=== PATIENT | male | born 2000 | race American Indian/Alaskan Native ===

== ENCOUNTER 2020-03-09 18:17 | Emergency (ER) | payer MEDICAID ==
--- NOTE | 2020-03-09 20:39 | Emergency Department Report ---
ED Psych HPI - General Chief Complaint: Psych Stated Complaint: SUICIDAL THOUGHTS Time Seen by Provider: 03/09/20 20:17 Source: EMS Mode of arrival: Ambulatory - History of Present Illness Initial Comments: Patient is 19 years old male with history of schizophrenia. Patient brought to the emergency room via EMS from home for evaluation of suicidal ideation and attempt. Patient found to have a multiple superficial laceration to the left arm. Patient stated that he is hearing voices asking him to hurt himself. Patient denied any homicidal ideation. No visual hallucination. MD Complaint: suicidal ideation Associated Psychiatric Symptoms: suicidal ideation, racing thoughts, auditory hallucinations History of same: Yes Quality: constant Associated Symptoms: denies other symptoms If Self Harm: admits thoughts of, has plan, self-inflicted trauma - Related Data Home Medications Medication Instructions Recorded Confirmed Last Taken QUEtiapine [SEROquel] 1 tab PO BID 03/09/20 03/09/20 02/08/20 Allergies Allergy/AdvReac Type Severity Reaction Status Date / Time No Known Allergies Allergy Verified 03/09/20 21:11 ED Review of Systems ROS: Stated complaint: SUICIDAL THOUGHTS Other details as noted in HPI Comment: All other systems reviewed and negative Constitutional: denies: chills, fever Respiratory: denies: cough, orthopnea, shortness of breath, SOB with exertion, SOB at rest, wheezing Cardiovascular: denies: chest pain, palpitations Gastrointestinal: denies: abdominal pain, nausea, vomiting Musculoskeletal: denies: back pain Neurological: denies: headache, weakness, numbness, paresthesias, confusion, abnormal gait Psychiatric: depression, auditory hallucinations, suicidal thoughts. denies: visual hallucinations, homicidal thoughts ED Past Medical Hx - Social History Smoking Status: Current Every Day Smoker Substance Use Type: Alcohol, Marijuana - Medications Home Medications: Home Medications Medication Instructions Recorded Confirmed Last Taken Type QUEtiapine [SEROquel] 1 tab PO BID 03/09/20 03/09/20 02/08/20 History ED Physical Exam - General Limitations: No Limitations General appearance: alert, in no apparent distress - Head Head exam: Present: atraumatic, normocephalic, normal inspection - Eye Eye exam: Present: normal appearance, PERRL - ENT ENT exam: Present: normal exam, normal orophraynx, mucous membranes moist - Neck Neck exam: Present: normal inspection, full ROM. Absent: tenderness, meningismus - Respiratory Respiratory exam: Present: normal lung sounds bilaterally - Cardiovascular Cardiovascular Exam: Present: regular rate, normal rhythm, normal heart sounds - GI/Abdominal GI/Abdominal exam: Present: soft, normal bowel sounds. Absent: distended, tenderness, guarding, rebound, rigid, organomegaly, mass, bruit, pulsatile mass, hernia - Back Exam Back exam: Present: normal inspection, full ROM. Absent: CVA tenderness (R), CVA tenderness (L) - Neurological Exam Neurological exam: Present: alert, oriented X3, CN II-XII intact, normal gait, reflexes normal. Absent: motor sensory deficit - Psychiatric Psychiatric exam: Present: depressed, suicidal ideation. Absent: agitated, anxious, flat affect, manic, homicidal ideation - Skin Skin exam: Present: warm, normal color, abrasion (Multiple abrasions to the left forearm.) ED Course Vital Signs 03/09/20 03/10/20 03/10/20 19:45 01:45 07:57 Temperature 98.0 F 97.9 F 97.6 F Pulse Rate 74 78 74 Respiratory 20 20 20 Rate Blood Pressure 111/56 117/62 112/74 [Left] O2 Sat by Pulse 100 98 100 Oximetry ED Medical Decision Making - Lab Data Result diagrams: 03/09/20 20:31 03/09/20 20:31 Critical care attestation.: If time is entered above; I have spent that time in minutes in the direct care of this critically ill patient, excluding procedure time. ED Disposition Clinical Impression: Suicidal ideation Disposition: [id number]/[facility]-[id number] PSY HOSP/PSY UNIT Is pt being admited?: No Condition: Stable Referrals: PRIMARY CARE, [Primary Care Provider] - 3-5 Days
[2020-03-09] MEDS ORDERED: IBUPROFEN 600 MG TAB PO ONE (20:40)
[2020-03-09 20:56] LABS: Bilirubin,Urine NEG (Negative); Blood,Urine NEG (Negative); Color,Urine Yellow (Yellow); Mucus,Urine 3+ /HPF; Urobilinogen,Urine < 2.0 mg/dL (<2.0); WBC,Urine < 1.0 /HPF (0.0-6.0)
[2020-03-09 21:05] LABS: Basophils % (Auto) 0.5 % (0.0-1.8); Eosinophils % (Auto) 0.3 % (0.0-4.3); Hematocrit 42.9 % (35.5-45.6); Lymphocytes # (Auto) 1.7 K/mm3 (1.2-5.4); Mean Corpuscular HGB Conc 33 % (32-34); Mean Corpuscular Volume 81 fl (84-94); Monocytes # (Auto) 0.7 K/mm3 (0.0-0.8); Platelet Count 254 K/mm3 (140-440); Red Blood Count 5.33 M/mm3 (3.65-5.03); Red Cell Distribution Width 14.9 % (13.2-15.2)
[2020-03-09 21:06] LABS: Amphetamine Screen,Urine Negative; Benzodiazepines Screen,Urine Negative; Cannabinoid Screen,Urine Negative; Cocaine Screen,Urine Negative; Methadone Screen,Urine Negative; Opiate Screen,Urine Negative
[2020-03-09 21:20] LABS: Blood Urea Nitrogen 14 mg/dL (9-20); Calcium 9.8 mg/dL (8.4-10.2); Hemolysis Index 22
[2020-03-09 21:22] LABS: BUN/Creatinine Ratio 20
[2020-03-09] MEDS ORDERED: QUEtiapine 100 MG TAB PO SCH (22:00)
[2020-03-10 07:58] VITALS: BP 112/74
--- NOTE | 2020-03-10 10:14 | Consultation ---
History of Present Illness - Reason for Consult Consult date: 03/10/20 Reason for consult: Si, hallucinations - History of Present Psychiatric Illness Memo Martines is a 19y/o male patient who presented to the ER after cutting his wrist. It is documented that the patient had multiple superficial lacerations to his arm after voices told him to hurt himself. During my interview with the patient, he is a/o x 3. He is calm and cooperative. His affect is flat. His disposition is quiet. The patient verbalizes feeling "depressed," and states that "voices were telling me to kill myself." The patient verbalizes the voices at present and states they are telling him n egative things. When asked about any illicit drug use, the patient replied "I eat meth." He also says he uses "weed." He says he has a history of schizophrenia and he takes seroquel 200mg po BID PAST PSYCHIATRIC HISTORY Diagnoses: schizophrenia Suicide attempts or Self-harm behavior: Yes Prior psychiatric hospitalizations: Yes Substance Abuse history: "eat meth" Previous psychiatric medications tried: seroquel Outpatient treatment: yes PAST MEDICAL HISTORY: None reported Family Psychiatric History: None reported or documented SOCIAL HISTORY Marital Status: Single Living Arrangements: homeless Employment Status: unemployed Access to guns/weapons: None reported Education: high school History of Abuse: None reported Legal History: denies REVIEW OF SYSTEMS Constitutional: Negative for weight loss ENT: Negative for stridor Respiratory: Negative for cough or hemoptysis All other systems reviewed and are negative MENTAL STATUS EXAMINATION General Appearance and Behavior: Age appropriate, good hygiene, wearing appropriate clothes, good eye contact Cooperation: Participating/engaged Psychomotor Behavior: Psychomotor normal Mood: depressed Affect and affective range: Congruent with mood Thought Process: illogical Thought Content: hallucinations Speech: Normal rate, volume and rhythm Suicidal Ideation: Yes Homicidal Ideation: Denies HI Hallucinations: Auditory Delusions: None elicited Impulse Control: Impaired Insight and Judgment: Limited insight and judgment Memory: Normal Attention: Limited Orientation: Alert, oriented Assessment and Plan Schizophrenia TREATMENT Start Seroquel 200mg po BID Start Depakote DR 125mg po BID Sitter: Defer to primary Medical: Per primary Disposition: Recommend acute inpatient psychiatric treatment Will follow. Thank you for this consult. Medications and Allergies Allergies Allergy/AdvReac Type Severity Reaction Status Date / Time No Known Allergies Allergy Verified 03/09/20 21:11 Home Medications Medication Instructions Recorded Confirmed Last Taken Type QUEtiapine [SEROquel] 1 tab PO BID 03/09/20 03/09/20 02/08/20 History Active Meds: Active Medications Quetiapine Fumarate (Seroquel) 200 mg PO QHS [facility] Last Admin: 03/09/20 21:49 Dose: 200 mg Documented by: Mental Status Exam - Vital signs Last Vital Signs Temp 97.6 F 03/10/20 07:57 Pulse 74 03/10/20 07:57 Resp 20 03/10/20 07:57 BP 112/74 03/10/20 07:57 Pulse Ox 100 03/10/20 07:57 Results Result Diagrams: 03/09/20 20:31 03/09/20 20:31 Abnormal lab results 03/09/20 03/09/20 03/09/20 Range/Units 20:31 20:31 20:31 RBC 5.33 H (3.65-5.03) M/mm3 MCV 81 L (84-94) fl MCH 26 L (28-32) pg Gosper % (Auto) 9.0 H (0.0-7.3) % Creatinine 0.7 L (0.8-1.3) mg/dL Glucose 105 H (75-100) mg/dL Salicylates < 0.3 L (2.8-20.0) mg/dL Acetaminophen (10.0-30.0) ug/mL 03/09/20 Range/Units 20:31 RBC (3.65-5.03) M/mm3 MCV (84-94) fl MCH (28-32) pg Gosper % (Auto) (0.0-7.3) % Creatinine (0.8-1.3) mg/dL Glucose (75-100) mg/dL Salicylates (2.8-20.0) mg/dL Acetaminophen 5.0 L (10.0-30.0) ug/mL All other labs normal.
[2020-03-10] MEDS ORDERED: DIVALPROEX DR 125 MG TAB PO SCH ×2 (10:21→22:00)
[2020-03-10] MEDS ORDERED: QUEtiapine 200 MG TAB PO SCH (22:00)
== END 2020-03-10 18:00 ==
LOC: ED 18:17
DX: F20.89 Other schizophrenia (principal)
CPT/HCPCS: 36415; 80048; 80307; 81001; 85025; 99285; U0003; 80320; G0480